=== PATIENT | male | born 1995 | race Caucasian/White ===

== ENCOUNTER 2017-01-16 13:00 | Emergency (ER) | payer MEDICAID ==
[2017-01-16 13:01] VITALS: BMI 25.8
[2017-01-16 13:23] VITALS: BP 140/80; PULSE 94; RESP 20; TEMP 99.2; O2SAT 99
--- NOTE | 2017-01-16 15:01 | C.PDOC ---
History Of Present Illness 21 y/o male presents to the ED with complains of nasal congestion and loose stool for the past few days (2x/day). Pt requesting school note after missing school today. Denies fever, chills, vomiting, cough, SOB or any other complaints. Time Seen by Provider: 01/16/17 14:46 Chief Complaint (Nursing): Fever History Per: Patient History/Exam Limitations: no limitations Onset/Duration Of Symptoms: Days Current Symptoms Are (Timing): Still Present Sick Contacts (Context): None Associated Symptoms: Nasal Congestion. denies: Fever, Cough, Vomiting Severity: Mild Recent travel outside of the [place]: No Past Medical History Reviewed: Historical Data, Nursing Documentation, Vital Signs Vital Signs: Last Vital Signs Temp 99.2 F 01/16/17 13:22 Pulse 94 H 01/16/17 13:22 Resp 20 01/16/17 13:22 BP 140/80 01/16/17 13:22 Pulse Ox 99 01/16/17 15:01 Family History: States: Unknown Family Hx - Social History Hx Tobacco Use: Yes Hx Alcohol Use: Yes Hx Substance Use: Yes - Immunization History Hx Tetanus Toxoid Vaccination: No Hx Influenza Vaccination: No Hx Pneumococcal Vaccination: No Review Of Systems Except As Marked, All Systems Reviewed And Found Negative. Constitutional: Negative for: Fever, Chills ENT: Positive for: Nose Congestion Respiratory: Negative for: Cough, Shortness of Breath Gastrointestinal: Positive for: Other (loose stools). Negative for: Vomiting, Abdominal Pain Physical Exam - Physical Exam Appears: Non-toxic, No Acute Distress Skin: Warm, Dry, No Rash Head: Atraumatic, Normacephalic Ear(s): Bilateral: Normal Nose: Other (mild nasal erythema) Oral Mucosa: Moist Throat: Normal, No Erythema Neck: Normal ROM, Supple Chest: Symmetrical Cardiovascular: Rhythm Regular, No Murmur Respiratory: Normal Breath Sounds, No Rales, No Rhonchi, No Wheezing Extremity: Bilateral: Atraumatic Neurological/Psych: Oriented x3, Normal Speech ED Course And Treatment O2 Sat by Pulse Oximetry: 99 (room air) Pulse Ox Interpretation: Normal Medical Decision Making Medical Decision Making: mild seasonal allergies needs school note. Disposition Doctor Will See Patient In The: Office Counseled Patient/Family Regarding: Studies Performed, Diagnosis - Disposition Referrals: [facility] [Outside] [facility] [Outside] Disposition: HOME/ ROUTINE Disposition Time: 15:00 Condition: GOOD Additional Instructions: BRAT diet for diarrhea Nati-D or similar seasonal allergy meds as needed and as directed. Instructions: Allergic Rhinitis (ED), Acute Diarrhea (ED) Forms: School Excuse - Clinical Impression Clinical Impression: Nasal congestion, Diarrhea - Scribe Statement The provider has reviewed the documentation as recorded by the Luis Alfredo Pang Provider Attestation: All medical record entries made by the Luis Alfredo were at my direction and personally dictated by me. I have reviewed the chart and agree that the record accurately reflects my personal performance of the history, physical exam, medical decision making, and the department course for this patient. I have also personally directed, reviewed, and agree with the discharge instructions and disposition.
== END 2017-01-16 15:21 | disposition home or self-care (01) ==
LOC: C.ER 13:00
DX: R09.81 Nasal congestion (principal); R19.7 Diarrhea, unspecified

== ENCOUNTER 2018-08-20 08:53 | Emergency (ER) | payer MEDICAID ==
[2018-08-20 08:53] VITALS: BMI 25.8
[2018-08-20 09:18] VITALS: BP 123/83; PULSE 81; RESP 18; TEMP 98.8; O2SAT 100
--- NOTE | 2018-08-20 10:03 | C.PDOC ---
History Of Present Illness 23 y/o male presents to the ED complaining of a sore throat. Reports fever with temp of 99.7 at home. Patient also complains of myalgias and feeling bad. Denies any productive cough, difficulty breathing, chest pain, other associated symptoms. Time Seen by Provider: 08/20/18 09:54 Chief Complaint (Nursing): Flu-like Symptoms History Per: Patient History/Exam Limitations: no limitations Onset/Duration Of Symptoms: Days Current Symptoms Are (Timing): Still Present Location Of Pain: Throat, Diffuse Myalgias Sick Contacts (Context): None Past Medical History Reviewed: Historical Data, Nursing Documentation, Vital Signs Vital Signs: Last Vital Signs Temp 98.8 F 08/20/18 09:14 Pulse 81 08/20/18 09:14 Resp 18 08/20/18 09:14 BP 123/83 08/20/18 09:14 Pulse Ox 100 08/20/18 09:14 - Medical History PMH: No Chronic Diseases Denies: Chronic Kidney Disease Surgical History: No Surg Hx Family History: States: Unknown Family Hx - Social History Hx Tobacco Use: Yes Hx Alcohol Use: Yes Hx Substance Use: No - Immunization History Hx Tetanus Toxoid Vaccination: No Hx Influenza Vaccination: No Hx Pneumococcal Vaccination: No Review Of Systems Except As Marked, All Systems Reviewed And Found Negative. Constitutional: Positive for: Fever, Other (Diffuse myalgias) ENT: Positive for: Throat Pain Cardiovascular: Negative for: Chest Pain Respiratory: Negative for: Cough, Shortness of Breath, Sputum Gastrointestinal: Negative for: Nausea, Vomiting Skin: Negative for: Rash Neurological: Negative for: Weakness, Headache, Dizziness Physical Exam - Physical Exam Appears: Non-toxic, No Acute Distress Skin: Warm, Dry, No Rash Head: Atraumatic, Normacephalic Eye(s): bilateral: Normal Inspection Nose: Normal, No Discharge Oral Mucosa: Moist Throat: Erythema (Mild pharyngeal erythema, with minimal swelling), No Exudate, Other (Uvula midline) Neck: Normal ROM, Supple Lymphatic: No Adenopathy Chest: Symmetrical Cardiovascular: Rhythm Regular, No Murmur Respiratory: Normal Breath Sounds, No Rales, No Rhonchi, No Wheezing, Other (NARD) Extremity: Bilateral: Atraumatic, Normal Color And Temperature Neurological/Psych: Oriented x3, Normal Speech ED Course And Treatment O2 Sat by Pulse Oximetry: 100 (RA) Pulse Ox Interpretation: Normal - Radiology CXR: Read By Radiologist CXR Interpretation: Yes: No Acute Disease. No: Infiltrates Medical Decision Making Medical Decision Making: Impression: Sore throat, fever, bodyaches Plan: --Chest x-ray CXR (-) for infiltrates. Patient will be discharged home with RX for Ibuprofen, Tamiflu, and Decadron. Counseled regarding likely diagnosis and the need for follow up. Disposition Counseled Patient/Family Regarding: Diagnosis, Need For Followup, Rx Given - Disposition Referrals: [facility] [Outside] [facility] [Outside] Disposition: HOME/ ROUTINE Disposition Time: 10:03 Condition: GOOD Prescriptions: Dexamethasone [Decadron] 12 mg PO ONCE #2 tablet Ibuprofen [Motrin] 600 mg PO Q6 #30 tab Oseltamivir Cap [Tamiflu] 75 mg PO BID #10 cap Instructions: Sore Throat, Adult (DC) Forms: [facility] (Monegasque), Work Excuse - Clinical Impression Clinical Impression: Acute pharyngitis - Scribe Statement The provider has reviewed the documentation as recorded by the Luis Alfredo Patricia Provider Attestation: All medical record entries made by the Luis Alfredo were at my direction and personally dictated by me. I have reviewed the chart and agree that the record accurately reflects my personal performance of the history, physical exam, medical decision making, and the department course for this patient. I have also personally directed, reviewed, and agree with the discharge instructions and disposition.
--- NOTE | 2018-08-20 10:42 | RAD ---
Chest x-ray two views HISTORY: Fever and cough. COMPARISON: None available. Findings: No focal infiltrate or effusion. Heart size within normal limits. Osseous structures preserved. Impression: No focal infiltrate or effusion.
== END 2018-08-20 10:17 | disposition home or self-care (01) ==
LOC: C.ER 08:53
DX: J02.9 Acute pharyngitis, unspecified (principal); F17.210 Nicotine dependence, cigarettes, uncomplicated